=== PATIENT | male | born 1960 | race Caucasian/White ===

== ENCOUNTER 2023-01-25 13:54 | Inpatient (IN) | payer BC ==
[~2023-01-25] VITALS: Ht 182.9 cm; Wt 102.5 kg
[2023-01-25 14:00] VITALS: BP_SYST 163
[2023-01-25 14:32] LABS: BASOPHILS % (AUTO) 0.4 % (0.0-2.0); EOSINOPHILS # (AUTO) 0.8 K/uL (0.0-0.4); EOSINOPHILS % (AUTO) 6.8 % (0.0-4.0); HEMATOCRIT 34.1 % (36-54); HEMOGLOBIN 11.6 g/dL (14.0-18.0); LYMPHOCYTES # (AUTO) 0.8 K/uL (1.0-5.5); LYMPHOCYTES % (AUTO) 7.1 % (20.5-51.5); MEAN CORPUSCULAR HEMOGLOBIN 32 pg (27-31); MEAN CORPUSCULAR HGB CONC 34 % (32-36); MEAN CORPUSCULAR VOLUME 93 fL (79.0-98.0); MONOCYTES # (AUTO) 1.3 K/uL (0.0-1.0); MONOCYTES % (AUTO) 11.5 % (1.7-9.3); NEUTROPHILS # (AUTO) 8.7 K/uL (1.8-7.7); NEUTROPHILS % (AUTO) 74.2 % (40.0-70.0); PLATELET COUNT (AUTO) 586 K/uL (130-430); RED BLOOD CELL COUNT(AUTO) 3.65 MIL/uL (4.2-6.2); RED CELL DISTRIBUTION WIDTH 13.1 % (9.0-15.0); WHITE BLOOD COUNT (AUTO) 11.7 K/uL (4.8-10.8)
[2023-01-25 14:46] LABS: ANION GAP 9 (5-15); CALCIUM 7.7 mg/dL (8.4-11.0); CHLORIDE 90 mmol/L (98-107); CREATININE 0.67 mg/dL (0.55-1.30); GFR AFRICAN AMERICAN 155 mL/min (>90); GLUCOSE 96 mg/dL (70-99); UREA NITROGEN, BLOOD 5 mg/dL (8-21)
[2023-01-25 14:52] LABS: ALANINE AMINOTRANSFERASE 26 U/L (12-78); ALBUMIN 2.8 g/dL (3.4-4.8); ASPARTATE AMINOTRANSFERASE 24 U/L (10-37); TOTAL BILIRUBIN 0.5 mg/dL (0.0-1.0)
[2023-01-25] MEDS ORDERED: FUROSEMIDE 100 MG/10 ML VIAL IVP ONE (15:30)
[2023-01-25 21:48] VITALS: BP_SYST 108
[2023-01-26 00:30] VITALS: BP_SYST 105
[2023-01-26 08:00] VITALS: BP_SYST 137
[2023-01-26] MEDS ORDERED: CARV3.1246 PO (09:29)
[2023-01-26] MEDS ORDERED: IRBE150T48 PO (09:29)
[2023-01-26] MEDS ORDERED: LIP10 PO (09:30)
[2023-01-26] MEDS ORDERED: ASCO500C18 PO (09:34)
[2023-01-26] MEDS ORDERED: FURO-149 PO (09:34)
[2023-01-26] MEDS ORDERED: FERR325T30 PO (09:35)
[2023-01-26] MEDS ORDERED: LORA-790 PO (09:37)
[2023-01-26] MEDS ORDERED: FAMO20TA8 PO (09:42)
[2023-01-26] MEDS ORDERED: HYDROcodone/ACETAMIN 5-325 MG TAB (NORCO/ VICODIN) PO PRN (10:00)
[2023-01-26] MEDS ORDERED: ACETAMINOPHEN 325 MG TABLET PO PRN ×2 (10:00→10:45)
[2023-01-26] MEDS ORDERED: HYDROcodone/ACETAMIN 10-325 MG TAB PO PRN (10:00)
[2023-01-26] MEDS ORDERED: ONDANSETRON HCL 4 MG/2 ML VIAL IVP PRN (10:00)
[2023-01-26] MEDS ORDERED: NALOXONE HCL 0.4 MG/ML AMP (NARCAN) IVP PRN ×2 (10:00)
[2023-01-26] MEDS ORDERED: P-EPHED SUL/LORATADINE 1 EACH TAB.SR.12H PO ONE (11:00)
[2023-01-26] MEDS ORDERED: FAMOTIDINE 20 MG TABLET PO ONE (11:00)
[2023-01-26] MEDS ORDERED: LOSARTAN POTASSIUM 50 MG TABLET (COZAAR) PO ONE (11:00)
[2023-01-26] MEDS ORDERED: ASCORBIC ACID 500 MG TABLET PO ONE (11:00)
[2023-01-26] MEDS ORDERED: FUROSEMIDE 40 MG TABLET PO ONE (11:00)
[2023-01-26 12:00] VITALS: BP_SYST 111
[2023-01-26] MEDS ORDERED: CARVEDILOL 6.25 MG TABLET (COREG) PO ONE (12:30)
[2023-01-26] MEDS ORDERED: ISOSORBIDE MONONITRATE 30 MG TAB.ER.24H PO ONE (12:30)
[2023-01-26] MEDS ORDERED: NORMAL SALINE 5 ML DISP.SYRIN IVF SCH (14:00)
[2023-01-26] MEDS ORDERED: FUROSEMIDE 40 MG/4 ML VIAL IVP ONE (14:15)
[2023-01-26] MEDS ORDERED: METHYLPREDNISOLONE SOD SUCC 40 MG/ML VIAL IVP ONE (14:15)
[2023-01-26 14:19] LABS: BASOPHILS # (AUTO) 0.1 K/uL (0.0-0.2); BASOPHILS % (AUTO) 0.9 % (0.0-2.0); EOSINOPHILS # (AUTO) 0.5 K/uL (0.0-0.4); EOSINOPHILS % (AUTO) 6.9 % (0.0-4.0); HEMATOCRIT 33.1 % (36-54); HEMOGLOBIN 11.1 g/dL (14.0-18.0); LYMPHOCYTES # (AUTO) 0.7 K/uL (1.0-5.5); LYMPHOCYTES % (AUTO) 9.4 % (20.5-51.5); MEAN CORPUSCULAR HEMOGLOBIN 32 pg (27-31); MEAN CORPUSCULAR HGB CONC 34 % (32-36); MEAN CORPUSCULAR VOLUME 95 fL (79.0-98.0); MONOCYTES % (AUTO) 13.8 % (1.7-9.3); PLATELET COUNT (AUTO) 539 K/uL (130-430); RED BLOOD CELL COUNT(AUTO) 3.49 MIL/uL (4.2-6.2); RED CELL DISTRIBUTION WIDTH 13.8 % (9.0-15.0); WHITE BLOOD COUNT (AUTO) 7.3 K/uL (4.8-10.8)
[2023-01-26] MEDS: FERROUS SULFATE 325 MG TABLET.DR PO SCH ×2 (14:47→21:05)
[2023-01-26] MEDS: NORMAL SALINE 5 ML DISP.SYRIN IVF SCH ×2 (14:48→21:14)
[2023-01-26] MEDS ORDERED: cefTRIAXone 1 GM in D5W 50 ML IV SCH (15:00)
[2023-01-26 16:00] VITALS: BP_SYST 122
[2023-01-26] MEDS ORDERED: FUROSEMIDE 20 MG/2 ML VIAL IVP ONE (16:15)
[2023-01-26] MEDS: ALBUMIN HUMAN 25% 50 ML IV SCH ×2 (17:23→21:04)
[2023-01-26 20:00] VITALS: BP_SYST 124
[2023-01-26] MEDS ORDERED: ATORVASTATIN 10 MG TABLET PO SCH (21:00)
[2023-01-26] MEDS ORDERED: CARVEDILOL 3.125 MG TABLET (COREG) PO SCH (21:00)
[2023-01-26] MEDS: CARVEDILOL 6.25 MG TABLET (COREG) PO SCH (21:06)
[2023-01-26] MEDS: LORazepam 2 MG/ML VIAL IVP PRN (21:13)
[2023-01-26 21:42] LABS: BILIRUBIN,URINE NEGATIVE (NEGATIVE); BLOOD, URINE NEGATIVE (NEGATIVE); CLARITY/URINE CLEAR (CLEAR); COLOR,URINE YELLOW (YELLOW); GLUCOSE,URINE NEGATIVE (NEGATIVE); KETONES,URINE 1+ (NEGATIVE); LEUKOCYTE ESTERASE ,URINE NEGATIVE (NEGATIVE); NITRITE, URINE NEGATIVE (NEGATIVE); PH,URINE 6.5 (5.0-8.0); PROTEIN URINE NEGATIVE (NEGATIVE)
[2023-01-27] VITALS: BP_SYST 120
[2023-01-27] MEDS: ALBUMIN HUMAN 25% 50 ML IV SCH (03:20)
[2023-01-27] MEDS: NORMAL SALINE 5 ML DISP.SYRIN IVF SCH (03:26)
[2023-01-27] MEDS: LORazepam 2 MG/ML VIAL IVP PRN (03:29)
[2023-01-27 04:00] VITALS: BP_SYST 115
[2023-01-27 05:47] LABS: BASOPHILS % (AUTO) 0.2 % (0.0-2.0); HEMATOCRIT 28.9 % (36-54); HEMOGLOBIN 9.9 g/dL (14.0-18.0); LYMPHOCYTES # (AUTO) 0.4 K/uL (1.0-5.5); LYMPHOCYTES % (AUTO) 9.2 % (20.5-51.5); MEAN CORPUSCULAR HEMOGLOBIN 32 pg (27-31); MEAN CORPUSCULAR HGB CONC 34 % (32-36); MEAN CORPUSCULAR VOLUME 94 fL (79.0-98.0); MONOCYTES # (AUTO) 0.3 K/uL (0.0-1.0); MONOCYTES % (AUTO) 7.6 % (1.7-9.3); NEUTROPHILS # (AUTO) 3.8 K/uL (1.8-7.7); PLATELET COUNT (AUTO) 468 K/uL (130-430); RED BLOOD CELL COUNT(AUTO) 3.09 MIL/uL (4.2-6.2); RED CELL DISTRIBUTION WIDTH 13.3 % (9.0-15.0); WHITE BLOOD COUNT (AUTO) 4.5 K/uL (4.8-10.8)
[2023-01-27 06:41] LABS: ALBUMIN 2.6 g/dL (3.4-4.8); CALCIUM 7.6 mg/dL (8.4-11.0); CREATININE 0.77 mg/dL (0.55-1.30); FREE T4 (FREE THYROXINE) 0.8 ng/dL (0.6-1.6); PHOSPHORUS 3.3 mg/dL (2.7-4.5); THYROID STIMULATING HORMONE 0.66 uIu/mL (0.34-4.82); TOTAL BILIRUBIN 0.4 mg/dL (0.0-1.0); URIC ACID 6.7 mg/dL (2.4-7.0)
[2023-01-27] MEDS: CARVEDILOL 6.25 MG TABLET (COREG) PO SCH (08:33)
[2023-01-27] MEDS: FERROUS SULFATE 325 MG TABLET.DR PO SCH (08:33)
[2023-01-27] MEDS ORDERED: FAMOTIDINE 20 MG TABLET PO SCH (09:00)
[2023-01-27] MEDS ORDERED: ISOSORBIDE MONONITRATE 30 MG TAB.ER.24H PO SCH (09:00)
[2023-01-27] MEDS ORDERED: LOSARTAN POTASSIUM 50 MG TABLET (COZAAR) PO SCH (09:00)
[2023-01-27] MEDS ORDERED: FUROSEMIDE 40 MG TABLET PO SCH (09:00)
[2023-01-27] MEDS ORDERED: predniSONE 20 MG TABLET PO SCH (09:00)
[2023-01-27] MEDS ORDERED: P-EPHED SUL/LORATADINE 1 EACH TAB.SR.12H PO SCH (09:00)
[2023-01-27] MEDS ORDERED: ASCORBIC ACID 500 MG TABLET PO SCH (09:00)
[2023-01-27] MEDS ORDERED: PRED20TA PO (10:12)
[2023-01-27] MEDS ORDERED: ISOS30TA85 PO (10:12)
[2023-01-27] MEDS ORDERED: COR6.25 PO (10:12)
[2023-01-27 11:32] LABS: URINE SODIUM, RANDOM 76 mmol/L (40-220)
[2023-01-27 12:00] VITALS: BP_SYST 143
[2023-01-27] MEDS ORDERED: FUROSEMIDE 20 MG/2 ML VIAL IVP ONE (12:00)
== END 2023-01-27 13:35 | disposition home or self-care (01) | DRG 871 ==
LOC: SED 13:54 → STU 19:04
PROVIDERS: ADMIT Preventive Medicine Preventive Medicine/Occupational Environmental Medicine; ATTEND Preventive Medicine Preventive Medicine/Occupational Environmental Medicine
DX: A41.9 Sepsis, unspecified organism (principal); E43 Unspecified severe protein-calorie malnutrition; E87.1 Hypo-osmolality and hyponatremia; I42.6 Alcoholic cardiomyopathy; I50.32 Chronic diastolic (congestive) heart failure; L03.116 Cellulitis of left lower limb; L03.115 Cellulitis of right lower limb; D64.9 Anemia, unspecified; E11.65 Type 2 diabetes mellitus with hyperglycemia; E83.51 Hypocalcemia; E78.5 Hyperlipidemia, unspecified; E88.09 Other disorders of plasma-protein metabolism, not elsewhere classified; F10.20 Alcohol dependence, uncomplicated; E87.8 Other disorders of electrolyte and fluid balance, not elsewhere classified; I11.0 Hypertensive heart disease with heart failure; Z20.822 Contact with and (suspected) exposure to COVID-19; L85.3 Xerosis cutis; Z79.899 Other long term (current) drug therapy; Z88.2 Allergy status to sulfonamides; Z68.30 Body mass index [BMI] 30.0-30.9, adult
CPT/HCPCS: 36415; 71045; 80053; 81003; 82570; 83735; 83880; 83930; 83935; 84100; 84302; 84439; 84443; 84484; 84550; 85025; 87040; 93005; 93306; 96374; 99291; 99292; G0378; J0696; J1030; J1940; J2060; J7060; J7512; P9046